=== PATIENT | female | born 1985 | race Caucasian/White ===

== ENCOUNTER → 2022-08-17 | Outpatient (CLI) | payer OTHER ==
[2022-08-17 16:14] LABS: HEMOGLOBIN A1C 5.3 % (3.8-5.6)
[2022-08-17 16:24] LABS: CHOL/HDL RATIO 4.5 (3.9-5.7)
== END | disposition home or self-care (01) ==
LOC: LABMN 13:04
PROVIDERS: ATTEND Psychiatry & Neurology Psychiatry
DX: F33.3 Major depressive disorder, recurrent, severe with psychotic symptoms (principal)
CPT/HCPCS: 80061; 82947; 83036